=== PATIENT | female | born 1945 | race Hispanic/Latino ===

== ENCOUNTER 2017-06-04 05:54 | Day surgery (SDC) | payer OTHER ==
[2017-05-31 11:42] VITALS: BP 190/67
[2017-05-31 11:57] LABS: BASOPHILS % (AUTO) 1.1 % (0.0-5.0); EOSINOPHILS % (AUTO) 1.7 % (0.0-8.0); HEMATOCRIT 34.1 % (36-48); LYMPHOCYTES % (AUTO) 12.7 % (21.0-51.0); MEAN CORPUSCULAR HEMOGLOBIN 28.3 pg (27.0-33.0); MEAN CORPUSCULAR HGB CONC 33.1 g/dL (32.0-36.0); MEAN CORPUSCULAR VOLUME 85.5 fL (79-99); MONOCYTES % (AUTO) 11.7 % (3.0-13.0); NEUTROPHILS % (AUTO) 72.8 % (40.0-77.0); NUCLEATED RED BLOOD CELLS 0.1 % (0.0-0.19); PLATELET COUNT (AUTO) 239 K/uL (130-400); RED BLOOD CELL COUNT(AUTO) 3.99 MIL/uL (4.00-5.50); RED CELL DISTRIBUTION WIDTH 18.8 % (11.0-15.5); WHITE BLOOD COUNT (AUTO) 8.9 K/uL (4.8-10.8)
[2017-05-31 12:15] LABS: CREATININE 2.6 mg/dL (0.5-1.5); POTASSIUM 3.7 mmol/L (3.5-5.1)
[2017-05-31 12:20] LABS: INR 1.02 (0.85-1.15); PARTIAL THROMBOPLASTIN TIME 28.9 SEC (26.3-35.5); PROTHROMBIN TIME 10.7 SEC (9.6-11.6)
[2017-06-04] VITALS (18 sets, daily range): BP systolic 108–169; BP diastolic 44–80
[~2017-06-04] VITALS: Ht 162.6 cm; Wt 107.2 kg
[~2017-06-04 05:54] MED LIST: ALBU8.5H8 IH; AMLO10TA2 PO; ASPI-555 PO; ATOR40TA71 PO; CHOL100040 PO; FLUT16H NS; FOLI1TAB85 PO; INSU100I13 SQ; LOSA50TA37 PO; NITR0.4T50 SL; OMEP20CA10 PO; ONDA4TAB10 PO
[2017-06-04] MEDS ORDERED: SODIUM CHLORIDE 0.9% 1000ML 1,000 ML IV ONE (06:16)
[2017-06-04] MEDS ORDERED: DEXAMETHASONE SOD PHOSPHATE 10MG/ML 1ML VIAL ONE (07:07)
[2017-06-04] MEDS ORDERED: GLYCOPYRROLATE 0.2 MG/ML 5 ML VIAL ONE ×2 (07:07→09:12)
[2017-06-04] MEDS ORDERED: MIDAZOLAM HCL 1 MG/ML 2ML VIAL ONE (07:07)
[2017-06-04] MEDS ORDERED: LIDOCAINE PF 2% 5ML ABBOJECT ONE (07:07)
[2017-06-04] MEDS ORDERED: SUCCINYLCHOLINE 200MG/10ML SYR ONE (07:07)
[2017-06-04] MEDS ORDERED: FENTANYL CITRATE PF 50 MCG/1 ML 2ML VIAL ONE ×2 (07:08→09:23)
[2017-06-04] MEDS ORDERED: PROPOFOL 10 MG/ML 20ML VIAL IV ONE (07:08)
[2017-06-04] MEDS ORDERED: LIDOCAINE HCL/EPINEPHRINE 50 ML VIAL IJ ONE (07:11)
[2017-06-04] MEDS ORDERED: VECURONIUM BROMIDE 10 MG ML IV ONE (08:08)
[2017-06-04] MEDS ORDERED: CEFAZOLIN SODIUM 1 GM VIAL ONE (08:50)
[2017-06-04] MEDS ORDERED: NEOSTIGMINE METHYLSULFATE 1MG/ML IV ONE (09:11)
[2017-06-04] MEDS ORDERED: PHENYLEPHRINE HCL 10 MG/ML 1ML VIAL IV ONE (09:11)
[2017-06-04] MEDS ORDERED: LIDOCAINE HCL 4% LTA SOL 4 ML VIAL ONE (09:12)
[2017-06-04] MEDS ORDERED: THROMBIN-JMI 5000 UNIT/VIAL TP ONE (09:31)
[2017-06-04] MEDS ORDERED: ACETAMINOPHEN EXTRA STRENGTH 500 MG TABLET PO ONE (12:00)
== END 2017-06-04 13:00 | disposition home or self-care (01) ==
LOC: DAH 05:54
PROVIDERS: ATTEND Otolaryngology Plastic Surgery within the Head & Neck
DX: D11.0 Benign neoplasm of parotid gland (principal); Z79.4 Long term (current) use of insulin; Z91.041 Radiographic dye allergy status; Z82.3 Family history of stroke; Z88.8 Allergy status to other drugs, medicaments and biological substances; Z98.890 Other specified postprocedural states; Z90.49 Acquired absence of other specified parts of digestive tract; Z86.010 Personal history of colon polyps; Z90.710 Acquired absence of both cervix and uterus; Z90.5 Acquired absence of kidney; I13.2 Hypertensive heart and chronic kidney disease with heart failure and with stage 5 chronic kidney disease, or end stage renal disease; E11.22 Type 2 diabetes mellitus with diabetic chronic kidney disease; N18.5 Chronic kidney disease, stage 5; E11.3299 Type 2 diabetes mellitus with mild nonproliferative diabetic retinopathy without macular edema, unspecified eye; E78.2 Mixed hyperlipidemia; E66.01 Morbid (severe) obesity due to excess calories; E11.42 Type 2 diabetes mellitus with diabetic polyneuropathy; I49.5 Sick sinus syndrome; E55.9 Vitamin D deficiency, unspecified; Z79.84 Long term (current) use of oral hypoglycemic drugs; Z79.899 Other long term (current) drug therapy; I25.10 Atherosclerotic heart disease of native coronary artery without angina pectoris
CPT/HCPCS: 36415 ×2; 42415; 80048; 82948 ×2; 84132; 85025; 85610; 85730; 88307; A4450; A4556 ×2; G0168; J0330; J0690; J1100; J2001; J2250; J2370; J2704; J2710; J3010 ×2; J3490 ×4; J7030

== ENCOUNTER 2018-12-20 07:30 | Day surgery (SDC) | payer OTHER ==
[~2018-12-20] VITALS: Ht 162.6 cm; Wt 45.1 kg
[~2018-12-20 07:30] MED LIST changes: -AMLO10TA2 PO; +AMLO10TA7 PO; -CHOL100040 PO; +CHOL50004 PO; -FLUT16H NS; -LOSA50TA37 PO; +OMEP-50 PO; -OMEP20CA10 PO; +SODIUM CHLORIDE 0.9% 1000ML 1,000 ML IV ONE; +SUCR500T PO
[2018-12-20 08:45] VITALS: BP 206/71
[2018-12-20] MEDS ORDERED: PROPOFOL 10 MG/ML 20ML VIAL IV ONE (09:49)
[2018-12-20 10:20] VITALS: BP 142/52
[2018-12-20 10:24] VITALS: BP 164/65
[2018-12-20 10:30] VITALS: BP 183/70
[2018-12-20 10:35] VITALS: BP 195/70
== END 2018-12-20 10:50 | disposition home or self-care (01) ==
LOC: ENDO 07:30 → DAH 07:30 → ENDO 10:50
PROVIDERS: ATTEND Internal Medicine Gastroenterology
DX: Z12.11 Encounter for screening for malignant neoplasm of colon (principal); D12.2 Benign neoplasm of ascending colon; D12.0 Benign neoplasm of cecum; K57.30 Diverticulosis of large intestine without perforation or abscess without bleeding; K64.0 First degree hemorrhoids; K21.9 Gastro-esophageal reflux disease without esophagitis; I12.0 Hypertensive chronic kidney disease with stage 5 chronic kidney disease or end stage renal disease; E11.22 Type 2 diabetes mellitus with diabetic chronic kidney disease; N18.6 End stage renal disease; E66.9 Obesity, unspecified; Z86.010 Personal history of colon polyps; Z99.2 Dependence on renal dialysis; Z85.528 Personal history of other malignant neoplasm of kidney; Z90.5 Acquired absence of kidney; Z90.49 Acquired absence of other specified parts of digestive tract; Z90.710 Acquired absence of both cervix and uterus; Z79.899 Other long term (current) drug therapy
CPT/HCPCS: 36415; 45385; 82948 ×2; 84132; 88305; 93005; A4215 ×2; A4221; A4222; A4223; A4606; A4663; J2704; J7030

== ENCOUNTER 2019-03-04 09:42 | Observation (INO) | payer OTHER ==
[~2019-03-04] VITALS: Ht 162.6 cm; Wt 92.9 kg
[~2019-03-04 09:42] MED LIST changes: +OMEP-298 PO; -OMEP-50 PO; -SODIUM CHLORIDE 0.9% 1000ML 1,000 ML IV ONE
[2019-03-04 10:16] LABS: BASOPHILS % (AUTO) 0.7 % (0.0-5.0); HEMATOCRIT 37.8 % (36-48); LYMPHOCYTES % (AUTO) 24.5 % (21.0-51.0); MEAN CORPUSCULAR HEMOGLOBIN 25.2 pg (27.0-33.0); MEAN CORPUSCULAR HGB CONC 28.6 g/dL (32.0-36.0); MEAN CORPUSCULAR VOLUME 88.3 fL (79-99); MONOCYTES % (AUTO) 22.7 % (3.0-13.0); NEUTROPHILS % (AUTO) 48.9 % (40.0-77.0); PLATELET COUNT (AUTO) 199 K/uL (130-400); RED BLOOD CELL COUNT(AUTO) 4.28 MIL/uL (4.00-5.50); RED CELL DISTRIBUTION WIDTH 17.8 % (11.0-15.5); WHITE BLOOD COUNT (AUTO) 4.4 K/uL (4.8-10.8)
[2019-03-04 10:28] LABS: INR 1.11 (0.85-1.15); PARTIAL THROMBOPLASTIN TIME 29.8 SEC (26.3-35.5); PROTHROMBIN TIME 11.6 SEC (9.6-11.6)
[2019-03-04 10:31] LABS: ALBUMIN 3.5 g/dL (3.5-5.0); BILIRUBIN,TOTAL 0.4 mg/dL (0.2-1.0); POTASSIUM 5.6 mmol/L (3.5-5.1); TOTAL PROTEIN, SERUM 7.3 g/dL (6.0-8.3)
[2019-03-04] MEDS ORDERED: IPRATROPIUM/ALBUTEROL SULFATE 3 ML SOLUTION IH ONE ×2 (10:31→12:17)
[2019-03-04 10:38] LABS: CREATININE 8.7 mg/dL (0.5-1.5)
[2019-03-04] MEDS ORDERED: OSELTAMIVIR PHOSPHATE 75 MG CAP ONE (12:00)
[2019-03-04] MEDS ORDERED: SODIUM CHLORIDE 0.9% 10 ML VIAL IVP PRN (14:00)
[2019-03-04] MEDS ORDERED: OSELTAMIVIR SUSP 15 MG/ML (6 CAPS/29ML) PO SCH ×2 (14:00)
[2019-03-04] MEDS ORDERED: COMPOUND PO MISCELLANEOUS 1 EACH MISC MISC PRN (14:00)
[2019-03-04] MEDS ORDERED: ZOLPIDEM TARTRATE 5 MG TAB PO PRN (14:30)
[2019-03-04] MEDS ORDERED: ACETAMINOPHEN-CODEINE 300/30MG TAB PO PRN (14:30)
[2019-03-04] MEDS ORDERED: LACTULOSE 20 GM/30 ML UDCUP PO PRN (14:30)
[2019-03-04] MEDS ORDERED: NITROGLYCERIN 0.4 MG SL TAB SL PRN ×2 (14:30)
[2019-03-04] MEDS ORDERED: GUAIFENESIN-DM 200/20 MG 10 ML PO PRN (14:30)
[2019-03-04] MEDS ORDERED: MORPHINE SULFATE 2 MG/ML 1ML SYG IV PRN (14:30)
[2019-03-04] MEDS ORDERED: BENZONATATE 100 MG CAPSULE PO PRN (14:30)
[2019-03-04] MEDS ORDERED: ONDANSETRON HCL 4 MG/2 ML VIAL IV PRN (14:30)
[2019-03-04] MEDS: CEFTRIAXONE SODIUM 1 GM IV SCH (14:30)
[2019-03-04] MEDS ORDERED: HYDRALAZINE HCL 20 MG/ML VIAL IV PRN (14:30)
[2019-03-04] MEDS ORDERED: ACETAMINOPHEN 325 MG TAB PO PRN ×2 (14:30)
[2019-03-04] MEDS ORDERED: DIPHENHYDRAMINE HCL 25 MG CAPSULE PO PRN (14:30)
[2019-03-04] MEDS ORDERED: MAG HYDROX/AL HYDROX/SIMETH ES 30 ML SUSP UDCUP PO PRN (14:30)
[2019-03-04] MEDS ORDERED: DiphenhydrAMINE HCL 50 MG/ML VIAL IV PRN (14:30)
[2019-03-04] MEDS ORDERED: CEFTRIAXONE SODIUM 1 GM ONE (15:45)
[2019-03-04 16:25] VITALS: BP 152/73
[2019-03-04] MEDS ORDERED: IPRATROPIUM/ALBUTEROL SULFATE 3 ML SOLUTION IH SCH (18:00)
[2019-03-04] MEDS: SODIUM CHLORIDE 3% FOR INHALATION 4 ML/AMP VIAL.NEB IH ONE ×2 (18:49→20:57)
[2019-03-04] MEDS: INSULIN HUMULIN R 100 UNIT/ML 3ML SQ SCH ×2 (18:49→21:00)
[2019-03-04 20:16] VITALS: BP 146/70
[2019-03-04] MEDS: AMLODIPINE BESYLATE 5 MG TAB PO SCH (20:27)
[2019-03-04] MEDS: IPRATROPIUM/ALBUTEROL SULFATE 3 ML SOLUTION IH SCH ×2 (20:33→23:20)
[2019-03-04] MEDS: BUDESONIDE 0.5 MG/2 ML INH IH SCH (20:41)
[2019-03-04] MEDS ORDERED: BUDESONIDE 0.5 MG/2 ML INH IH SCH (21:00)
[2019-03-04] MEDS ORDERED: INSULIN GLARGINE 100 UNITS/ML 10 ML VIAL SQ SCH (21:00)
[2019-03-04] MEDS ORDERED: ATORVASTATIN CALCIUM 40 MG TABLET PO SCH (21:00)
[2019-03-05 00:20] VITALS: BP 137/71
[2019-03-05 04:20] VITALS: BP 136/64
[2019-03-05 06:01] LABS: BASOPHILS % (AUTO) 0.7 % (0.0-5.0); EOSINOPHILS % (AUTO) 2.6 % (0.0-8.0); LYMPHOCYTES % (AUTO) 25.7 % (21.0-51.0); MEAN CORPUSCULAR HEMOGLOBIN 25.3 pg (27.0-33.0); MEAN CORPUSCULAR HGB CONC 28.6 g/dL (32.0-36.0); MEAN CORPUSCULAR VOLUME 88.5 fL (79-99); MONOCYTES % (AUTO) 23.9 % (3.0-13.0); NEUTROPHILS % (AUTO) 46.7 % (40.0-77.0); PLATELET COUNT (AUTO) 178 K/uL (130-400); RED BLOOD CELL COUNT(AUTO) 4.07 MIL/uL (4.00-5.50); RED CELL DISTRIBUTION WIDTH 17.6 % (11.0-15.5); WHITE BLOOD COUNT (AUTO) 4.6 K/uL (4.8-10.8)
[2019-03-05 06:27] LABS: CREATININE 5.5 mg/dL (0.5-1.5); POTASSIUM 4.2 mmol/L (3.5-5.1)
[2019-03-05] MEDS: IPRATROPIUM/ALBUTEROL SULFATE 3 ML SOLUTION IH SCH ×2 (06:29→10:56)
[2019-03-05] MEDS: BUDESONIDE 0.5 MG/2 ML INH IH SCH (06:29)
[2019-03-05] MEDS: INSULIN HUMULIN R 100 UNIT/ML 3ML SQ SCH ×3 (06:43→16:30)
[2019-03-05 08:06] VITALS: BP 142/86
[2019-03-05] MEDS ORDERED: [UNRECOGNIZED DRUG - MIXTURE] PO SCH ×3 (09:00)
[2019-03-05] MEDS ORDERED: AMLODIPINE BESYLATE 5 MG TAB PO SCH (09:00)
[2019-03-05] MEDS ORDERED: ASPIRIN 81 MG EC TAB PO SCH (09:00)
[2019-03-05] MEDS ORDERED: PREDNISONE 20 MG TABLET PO SCH (09:00)
[2019-03-05] MEDS: AMLODIPINE BESYLATE 5 MG TAB PO SCH (09:15)
[2019-03-05 11:00] VITALS: BP 138/73
[2019-03-05] MEDS: CEFTRIAXONE SODIUM 1 GM IV SCH (11:55)
[2019-03-05 16:49] VITALS: BP 160/69
[2019-03-05] MEDS ORDERED: OSEL30CA PO (17:04)
[2019-03-07 07:13] LABS: HEPATITIS Bs ANTIGEN SCREEN P Negative (Negative)
== END 2019-03-05 18:35 | disposition home or self-care (01) ==
LOC: EDH 09:42 → EDHIP 13:20 → 4CH 16:31
PROVIDERS: ADMIT Internal Medicine; ATTEND Internal Medicine
DX: J10.00 Influenza due to other identified influenza virus with unspecified type of pneumonia (principal); J20.9 Acute bronchitis, unspecified; E11.22 Type 2 diabetes mellitus with diabetic chronic kidney disease; I12.0 Hypertensive chronic kidney disease with stage 5 chronic kidney disease or end stage renal disease; N18.6 End stage renal disease; E78.5 Hyperlipidemia, unspecified; K21.9 Gastro-esophageal reflux disease without esophagitis; I48.91 Unspecified atrial fibrillation; Z85.528 Personal history of other malignant neoplasm of kidney; Z87.891 Personal history of nicotine dependence; Z99.2 Dependence on renal dialysis; Z90.5 Acquired absence of kidney; Z90.49 Acquired absence of other specified parts of digestive tract; Z90.710 Acquired absence of both cervix and uterus; Z91.048 Other nonmedicinal substance allergy status; Z79.82 Long term (current) use of aspirin; Z79.4 Long term (current) use of insulin; Z79.51 Long term (current) use of inhaled steroids; Z79.899 Other long term (current) drug therapy
CPT/HCPCS: 36415 ×2; 71045 ×2; 80048; 80053; 82948 ×5; 83735; 84145; 85025 ×2; 85610; 85730; 86704; 86706; 87071; 87205; 87340; 87520; 87804 ×2; 93005; 94640 ×9; 94664; 94760 ×2; 96374; 99284; A4600; G0378 ×25; J0696 ×2; 90935

== ENCOUNTER 2019-03-22 15:57 | Emergency (ER) | payer OTHER ==
[~2019-03-22 15:57] MED LIST changes: -OMEP-298 PO; +OMEP20CA12 PO; +OSEL30CA PO
== END 2019-03-22 16:53 | disposition home or self-care (01) ==
LOC: EDH 15:57
DX: S81.812A Laceration without foreign body, left lower leg, initial encounter (principal); I12.0 Hypertensive chronic kidney disease with stage 5 chronic kidney disease or end stage renal disease; E11.22 Type 2 diabetes mellitus with diabetic chronic kidney disease; N18.6 End stage renal disease; K21.9 Gastro-esophageal reflux disease without esophagitis; I48.91 Unspecified atrial fibrillation; Z90.49 Acquired absence of other specified parts of digestive tract; Z90.710 Acquired absence of both cervix and uterus; Z91.041 Radiographic dye allergy status; W22.8XXA Striking against or struck by other objects, initial encounter; Y93.89 Activity, other specified; Y92.89 Other specified places as the place of occurrence of the external cause; Y99.8 Other external cause status
CPT/HCPCS: 99282

== ENCOUNTER 2019-03-22 23:57 | Emergency (ER) | payer OTHER ==
[2019-03-23] MEDS ORDERED: LIDOCAINE 1%-EPI 1:100,000 20 ML VIAL IJ ONE (00:25)
[2019-03-23 01:01] LABS: BASOPHILS % (AUTO) 0.9 % (0.0-5.0); EOSINOPHILS % (AUTO) 3.1 % (0.0-8.0); HEMATOCRIT 35.2 % (36-48); LYMPHOCYTES % (AUTO) 23.6 % (21.0-51.0); MEAN CORPUSCULAR HEMOGLOBIN 25.2 pg (27.0-33.0); MEAN CORPUSCULAR VOLUME 86.9 fL (79-99); NEUTROPHILS % (AUTO) 59.9 % (40.0-77.0); PLATELET COUNT (AUTO) 183 K/uL (130-400); RED BLOOD CELL COUNT(AUTO) 4.05 MIL/uL (4.00-5.50); RED CELL DISTRIBUTION WIDTH 17.3 % (11.0-15.5); WHITE BLOOD COUNT (AUTO) 8.6 K/uL (4.8-10.8)
[2019-03-23] MEDS ORDERED: CEPHALEXIN 500 MG CAPSULE ONE (01:37)
== END 2019-03-23 01:44 | disposition home or self-care (01) ==
LOC: EDH 23:57
DX: S81.812A Laceration without foreign body, left lower leg, initial encounter (principal); D53.9 Nutritional anemia, unspecified; K21.9 Gastro-esophageal reflux disease without esophagitis; E11.22 Type 2 diabetes mellitus with diabetic chronic kidney disease; I12.0 Hypertensive chronic kidney disease with stage 5 chronic kidney disease or end stage renal disease; N18.6 End stage renal disease; I48.91 Unspecified atrial fibrillation; Z99.2 Dependence on renal dialysis; Z90.49 Acquired absence of other specified parts of digestive tract; Z90.710 Acquired absence of both cervix and uterus; Z91.041 Radiographic dye allergy status; Z85.528 Personal history of other malignant neoplasm of kidney; W45.8XXA Other foreign body or object entering through skin, initial encounter; Y93.89 Activity, other specified; Y92.89 Other specified places as the place of occurrence of the external cause; Y99.8 Other external cause status
CPT/HCPCS: 12034; 36415; 85025; 99282; 99284; J3490

== ENCOUNTER → 2019-04-28 | Outpatient (CLI) | payer OTHER | END | disposition home or self-care (01) | LOC: SHCH 09:54 | PROVIDERS: ATTEND Internal Medicine Cardiovascular Disease | DX: I48.91 Unspecified atrial fibrillation (principal) | CPT/HCPCS: 93306; 93356 ==

== ENCOUNTER → 2019-06-19 | Outpatient (CLI) | payer OTHER | END | disposition home or self-care (01) | LOC: SHCH 14:04 | PROVIDERS: ATTEND Internal Medicine Cardiovascular Disease | DX: I87.2 Venous insufficiency (chronic) (peripheral) (principal) | CPT/HCPCS: 93970 ==

== ENCOUNTER → 2021-01-24 | Outpatient (CLI) | payer OTHER ==
[~2021-01-24] MED LIST changes: +AMLO-258 PO; -AMLO10TA7 PO; -ASPI-555 PO; +ASPI-556 PO
== END | disposition home or self-care (01) ==
LOC: SHCH 10:51
PROVIDERS: ATTEND Internal Medicine Cardiovascular Disease
DX: I87.2 Venous insufficiency (chronic) (peripheral) (principal)
CPT/HCPCS: 93971

== ENCOUNTER → 2021-06-01 | Outpatient (CLI) | payer OTHER | END | disposition home or self-care (01) | LOC: SHCH 10:59 | PROVIDERS: ATTEND Internal Medicine Cardiovascular Disease | DX: I35.8 Other nonrheumatic aortic valve disorders (principal); I13.2 Hypertensive heart and chronic kidney disease with heart failure and with stage 5 chronic kidney disease, or end stage renal disease; I50.30 Unspecified diastolic (congestive) heart failure; E11.22 Type 2 diabetes mellitus with diabetic chronic kidney disease; N18.6 End stage renal disease; I20.9 Angina pectoris, unspecified; E78.5 Hyperlipidemia, unspecified | CPT/HCPCS: 93306 ==

== ENCOUNTER 2021-10-03 22:37 | Emergency (ER) | payer OTHER ==
[~2021-10-03] VITALS: Ht 162.6 cm; Wt 86.2 kg
[2021-10-03 22:38] VITALS: BP 196/78
== END 2021-10-04 00:01 | disposition home or self-care (01) ==
LOC: EDH 22:37
DX: K43.9 Ventral hernia without obstruction or gangrene (principal); E11.9 Type 2 diabetes mellitus without complications; I10 Essential (primary) hypertension; I48.91 Unspecified atrial fibrillation; J45.909 Unspecified asthma, uncomplicated; Z79.82 Long term (current) use of aspirin; Z88.8 Allergy status to other drugs, medicaments and biological substances; Z90.49 Acquired absence of other specified parts of digestive tract
CPT/HCPCS: 99281

== ENCOUNTER → 2022-02-06 | Outpatient (CLI) | payer OTHER ==
[~2022-02-06] MED LIST changes: +REGADENOSON 0.4 MG/5 ML PF SYG IVP SCH
== END | disposition home or self-care (01) ==
LOC: SHCH 09:17
PROVIDERS: ATTEND Internal Medicine Cardiovascular Disease
DX: I48.91 Unspecified atrial fibrillation (principal); I20.9 Angina pectoris, unspecified; R07.9 Chest pain, unspecified
CPT/HCPCS: 78452; 96374; 93017; J2785; A9500 ×2

== ENCOUNTER 2022-03-23 12:19 | Emergency (ER) | payer OTHER ==
[~2022-03-23] VITALS: Ht 162.6 cm; Wt 84.8 kg
[~2022-03-23 12:19] MED LIST changes: -REGADENOSON 0.4 MG/5 ML PF SYG IVP SCH
[2022-03-23] MEDS ORDERED: KETOROLAC 15MG/ML VIAL (15MG/ML) IV ONE (14:00)
[2022-03-23] MEDS ORDERED: MORPHINE 2 MG SYG IVP ONE (14:00)
[2022-03-23] MEDS ORDERED: [UNRECOGNIZED DRUG - CODE] PO (15:17)
[2022-03-23] MEDS ORDERED: DiphenhydrAMINE HCL 50 MG/ML VIAL ONE (15:59)
[2022-03-23] MEDS ORDERED: DiphenhydrAMINE HCL 50 MG/ML VIAL IV ONE (16:00)
[2022-03-23 16:12] VITALS: BP 132/78
== END 2022-03-23 16:22 | disposition home or self-care (01) ==
LOC: EDH 12:19
DX: S40.011A Contusion of right shoulder, initial encounter (principal); I48.91 Unspecified atrial fibrillation; J45.909 Unspecified asthma, uncomplicated; I12.0 Hypertensive chronic kidney disease with stage 5 chronic kidney disease or end stage renal disease; E11.22 Type 2 diabetes mellitus with diabetic chronic kidney disease; N18.6 End stage renal disease; Z79.82 Long term (current) use of aspirin; Z91.040 Latex allergy status; Z88.5 Allergy status to narcotic agent; Z90.710 Acquired absence of both cervix and uterus; Z90.49 Acquired absence of other specified parts of digestive tract; Z98.890 Other specified postprocedural states; Z79.899 Other long term (current) drug therapy; W18.39XA Other fall on same level, initial encounter; Y93.89 Activity, other specified; Y92.89 Other specified places as the place of occurrence of the external cause; Y99.8 Other external cause status
CPT/HCPCS: 99285; 73030; 70450; 72125; 96374; 96375; J1200; J1885